=== PATIENT | female | born 1990 | race Hispanic/Latino ===

== ENCOUNTER 2018-05-15 09:21 | Emergency (ER) | payer BC ==
[2018-05-15] MEDS ORDERED: Oxycodone/Acetaminophen 5/325 mg Tab PO ONE (09:56)
[2018-05-15] MEDS ORDERED: Tdap Vaccine 0.5 ml Vial (10-64 yrs) IM ONE (09:57)
--- NOTE | 2018-05-15 10:27 | ED PDOC ---
Lower Extremity Pain/Injury Time Seen by Provider: 05/15/18 09:44 Chief Complaint (Nursing): Lower Extremity Problem/Injury Chief Complaint (Provider): Lower Extremity Problem/Injury History Per: Patient History/Exam Limitations: no limitations Onset/Duration Of Symptoms: Days (x1) Additional Complaint(s): 28 years old female with no significant pmhx presents to ER for evaluation of right foot injury onset yesterday. Patient reports she stepped on a piece of ceramic glass, put her foot down and cut through the bottom of the foot. She states pain got worse this morning and reports visiting urgent clinic where she was advised to come to ER for further evaluation. Patient is not sure about her tetanus status. She denies taking any medication for pain or having other complaints. PMD: non provided Past Medical History Reviewed: Historical Data, Nursing Documentation, Vital Signs Vital Signs: Last Vital Signs Temp 98.3 F 05/15/18 09:24 Pulse 94 H 05/15/18 09:24 Resp 18 05/15/18 09:24 BP 123/75 05/15/18 09:24 Pulse Ox 98 05/15/18 09:24 - Medical History PMH: No Chronic Diseases - Surgical History Surgical History: No Surg Hx - Family History Family History: States: Unknown Family Hx - Social History Current smoker - smoking cessation education provided: No Alcohol: Social Drugs: Denies - Home Medications Home Medications: Ambulatory Orders Medication Instructions Recorded Cephalexin [Keflex] 500 mg PO BID #14 capsule 05/15/18 - Allergies Allergies/Adverse Reactions: Allergies Allergy/AdvReac Type Severity Reaction Status Date / Time No Known Allergies Allergy Verified 05/15/18 09:40 Review of Systems ROS Statement: Except As Marked, All Systems Reviewed And Found Negative Musculoskeletal: Positive for: Foot Pain (left) Skin: Positive for: Other (Laceration to left foot) Physical Exam - Reviewed Nursing Documentation Reviewed: Yes Vital Signs Reviewed: Yes - Physical Exam Appears: Positive for: Non-toxic, No Acute Distress Head Exam: Positive for: ATRAUMATIC, NORMOCEPHALIC Extremity: Positive for: Tenderness (on palpation to left foot laceration), Swelling (Right foot), Other (Irregular 3 cm laceration on the bottom of right foot located between the toes and metatarsal area, extending into the interdigital web. No bleeding.) Neurologic/Psych: Positive for: Alert, Oriented (x3) - ECG O2 Sat by Pulse Oximetry: 98 (RA) Pulse Ox Interpretation: Normal Medical Decision Making Medical Decision Making: Time: 955 Initial Impression: Foot laceration, puncture wound of foot Initial Plan: --Adacel 0.5 ml IM --Percocet 1 tab PO --Right foot 3 views x-ray 1025 Spoke to podiatry resident who will see patient on bedside. 1104 Right foot x-ray FINDINGS: BONES: Bone alignment and mineralization are normal. There is no acute displaced fracture or bone destruction. JOINTS: Normal. SOFT TISSUES: Normal. No radiopaque foreign body. OTHER FINDINGS: None. IMPRESSION: No acute fracture or dislocation. No radiopaque foreign body. 1130 Patient has been evaluated by podiatry team who managed the wound. Recommend follow up with Dr Gomez and bhanu. Scribe Attestation: Documented by Daniela Flores, acting as a scribe for Basilio Gorman MD. Provider Scribe Attestation: All medical record entries made by the Scribe were at my direction and personally dictated by me. I have reviewed the chart and agree that the record accurately reflects my personal performance of the history, physical exam, medical decision making, and the department course for this patient. I have also personally directed, reviewed, and agree with the discharge instructions and disposition. Disposition - Clinical Impression Clinical Impression: Foot laceration, Puncture wound of foot - Patient ED Disposition Is Patient to be Admitted: No Doctor Will See Patient In The: Office Counseled Patient/Family Regarding: Studies Performed, Diagnosis, Need For Followup - Disposition Referrals: Yasir Gomez DPM [Staff Provider] - Disposition: Routine/Home Disposition Time: 11:57 Condition: GOOD Additional Instructions: LUCIANO QURESHI, thank you for letting us take care of you today. Your provider was Basilio Gorman MD and you were treated for LACERATION ON FOOT. The emergency medical care you received today was directed at your acute symptoms. If you were prescribed any medication, please fill it and take as directed. It may take several days for your symptoms to resolve. Return to the Emergency Department if your symptoms worsen, do not improve, or if you have any other problems. Please contact your doctor or call one of the physicians/clinics you have been r eferred to that are listed on the Patient Visit Information form that is included in your discharge packet. Bring any paperwork you were given at discharge with you along with any medications you are taking to your follow up visit. Our treatment cannot replace ongoing medical care by a primary care provider outside of the emergency department. Thank you for allowing the [facility] team to be part of your care today. If you had an X-Ray or CT scan: A Radiologist will review the ED reading if any change in treatment is needed we will contact you. If you had a blood, urine, or wound culture: It will take several days for the results, if any change in treatment is needed we will contact you. If you had an STI test: It will take 48 hours for the results. Please call after 1 week if you have not heard back. Prescriptions: Cephalexin [Keflex] 500 mg PO BID #14 capsule Instructions: Laceration Repair With Kvng (DC), Wound Care (DC)
[2018-05-15] MEDS ORDERED: Oxycodone/Acetaminophen 5/325 mg Tab ONE (10:40)
[2018-05-15] MEDS ORDERED: Tetanus/Diphtheria Toxoids 0.5 ml Syringe IM ONE (10:41)
[2018-05-15] MEDS ORDERED: Lidocaine 2% w Epi 1:100,000 Inj IJ ONE ×2 (10:49→10:51)
[2018-05-15] MEDS ORDERED: Povidone Iodine Topical 10% Sol ONE (10:50)
[2018-05-15] MEDS ORDERED: Lidocaine 1% Inj (20ml) IJ ONE (10:52)
[2018-05-15] MEDS ORDERED: Lidocaine 2% MPF (5 ml) Inj ONE (10:57)
--- NOTE | 2018-05-15 11:08 | RAD ---
Date of service: 05/15/2018 PROCEDURE: Right Foot Radiographs. HISTORY: right foot injury foreign body? COMPARISON: None. FINDINGS: BONES: Bone alignment and mineralization are normal. There is no acute displaced fracture or bone destruction. JOINTS: Normal. SOFT TISSUES: Normal. No radiopaque foreign body. OTHER FINDINGS: None. IMPRESSION: No acute fracture or dislocation. No radiopaque foreign body.
--- NOTE | 2018-05-15 11:48 | CP.PCM.CON ---
History of Present Illness - History of Present Illness History of Present Illness: Podiatry Consult Note for Dr. Gomez: 28 yo female, with no significant PMHx, patient seen and evaluated in the ED for R foot laceration. Patient states she stepped on a broken ceramic tea cup last night and went to urgent care who recommended she come to the ED for further evaluation. Patient reports increased pain this morning and is unable to bear weight on the top of her foot where the laceration is located. Denies any other pedal complaints. Denies N/V/F/SOB. PMHx: denies SHx: denies ALL: denies Review of Systems - Review of Systems Review of Systems: As per HPI Past Patient History - Past Social History Alcohol: Social Drugs: Denies - CARDIAC Hx Cardiac Disorders: No - PSYCHIATRIC Hx Substance Use: No - SURGICAL HISTORY Hx Surgeries: No - ANESTHESIA Hx Anesthesia: No Meds Home Medications: Home Medication List Medication Instructions Recorded Confirmed Type Cephalexin [Keflex] 500 mg PO BID #14 capsule 05/15/18 Rx Allergies/Adverse Reactions: Allergies Allergy/AdvReac Type Severity Reaction Status Date / Time No Known Allergies Allergy Verified 05/15/18 09:40 Physical Exam - Constitutional Appears: Well, Non-toxic, No Acute Distress - Head Exam Head Exam: ATRAUMATIC, NORMOCEPHALIC - Extremities Exam Additional comments: Vascular: DP/PT 2/4, CFT < 3 seconds to all digits, TG warm to warm bilaterally, pedal hair appreciated, no edema noted Ortho: Pain upon palpation of plantar aspect of R foot to laceration site, MMT 5/5 in all compartments Neuro: Gross and protective sensation intact Derm: Laceration measuring approximately, 3cm x .5 x .5 cm, on the plantar aspect of R foot in the first interspace. No purulence, no tunneling, no probe to bone appreciated. No clinical signs of infection. No foreign body appreciated. Sanginous drainage appreciated. Erythema appreciated barber wound - Neurological Exam Neurological exam: Alert, Oriented x3 - Psychiatric Exam Psychiatric exam: Normal Affect, Normal Mood Results - Vital Signs Recent Vital Signs: Last Vital Signs Temp 98.3 F 05/15/18 09:24 Pulse 94 H 05/15/18 09:24 Resp 18 05/15/18 09:24 BP 123/75 05/15/18 09:24 Pulse Ox 98 05/15/18 11:23 Assessment & Plan - Assessment and Plan (Free Text) Assessment: 28 yo female, with no significant PMHx, patient seen and evaluated in the ED for R foot laceration. Plan: Patient seen and evaluated, discussed in detail with Dr. Gomez R foot x-rays taken; No acute fracture or dislocation. No radiopaque foreign body. 5cc of 2% lidocaine plain injected in a v block fashion to R plantar foot Washout of laceration site with saline and betadine Laceration site inspected for any foreign body Laceration sutured with 3-0 nylon Patient instructed to keep dressing, clean, dry, intact PO Keflex Surgical shoe dispensed to patient; patient instructed to remain weightbearing as tolerated to R heel F/U in podiatry clinic on Monday Thank you for the consult - Date & Time Date: 05/15/18 Time: 12:06
[2018-05-15 12:24] VITALS: BP 106/73; PULSE 79; RESP 16; TEMP 98.6; O2SAT 99
== END 2018-05-15 12:37 | disposition home or self-care (01) ==
LOC: H.ER 09:21
DX: S91.331A Puncture wound without foreign body, right foot, initial encounter (principal); W25.XXXA Contact with sharp glass, initial encounter; Y92.89 Other specified places as the place of occurrence of the external cause